=== PATIENT | female | born 1970 | race Caucasian/White ===

== ENCOUNTER 2017-05-19 11:20 | Emergency (ER) | payer MEDICAID ==
[~2017-05-19] VITALS: Ht 165.1 cm; Wt 72.6 kg
[2017-05-19 14:01] VITALS: BP 131/74
== END 2017-05-19 14:01 | disposition home or self-care (01) ==
LOC: ED 11:20
DX: S93.601A Unspecified sprain of right foot, initial encounter (principal); S93.401A Sprain of unspecified ligament of right ankle, initial encounter; V43.52XA Car driver injured in collision with other type car in traffic accident, initial encounter; Y93.I9 Activity, other involving external motion; Y99.8 Other external cause status; Y92.410 Unspecified street and highway as the place of occurrence of the external cause
CPT/HCPCS: J1170; J2405

== ENCOUNTER 2017-05-29 09:34 | Emergency (ER) | payer MEDICAID ==
[~2017-05-29] VITALS: Ht 167.6 cm; Wt 74.8 kg
[2017-05-29 12:18] VITALS: BP 132/64
== END 2017-05-29 12:18 | disposition home or self-care (01) ==
LOC: ED 09:34
DX: S93.601A Unspecified sprain of right foot, initial encounter (principal); V89.2XXA Person injured in unspecified motor-vehicle accident, traffic, initial encounter; Y93.89 Activity, other specified; Y99.8 Other external cause status; Y92.89 Other specified places as the place of occurrence of the external cause
CPT/HCPCS: Q0092